=== PATIENT | female | born 1955 | race Caucasian/White ===

== ENCOUNTER → 2016-11-15 | Outpatient (CLI) | payer OTHER ==
[~2016-11-15] MED LIST: ACETAMINOPHEN-H1 TA2 PO; BISACODYL LAXATI5 MG PO; CIPRO500 MG PO; HYDROCODONE BIT1 T11 PO; MIRALAX POWDER17 G1 PO; Orphenadrine C100 MG PO; PREDNISONE20 M1 PO; VIMOVO DR 500-1 EACH PO; ZOFRAN ODT4 MG SL
== END | disposition home or self-care (01) ==
LOC: RAD 12:31
DX: R06.02 Shortness of breath (principal); I51.7 Cardiomegaly; R05 Cough; F17.200 Nicotine dependence, unspecified, uncomplicated

== ENCOUNTER → 2017-05-22 | Outpatient (CLI) | payer OTHER | END | disposition home or self-care (01) | LOC: LAB 17:12 | DX: R30.0 Dysuria (principal) ==

== ENCOUNTER → 2017-08-11 | Outpatient (CLI) | payer OTHER ==
[2017-08-11 16:36] LABS: ALBUMIN 3.7 gm/dl (3.1-4.5); BUN 13 mg/dl (7-24); CHLORIDE 105 mmol/L (98-107); CREATININE 0.71 mg/dL (0.55-1.02); POTASSIUM 4.7 mmol/L (3.5-5.1); SGOT/AST 41 IU/L (3-35); SGPT/ALT 58 U/L (12-78); SODIUM 142 mmol/L (136-145)
[2017-08-11 16:37] LABS: ALKALINE PHOSPHATASE 109 U/L (45-117); TOTAL PROTEIN 7.1 gm/dL (6.4-8.2)
== END | disposition home or self-care (01) ==
LOC: LAB 15:33 → US 17:00
PROVIDERS: Family Medicine
DX: N39.45 Continuous leakage (principal)

== ENCOUNTER → 2020-02-03 | Outpatient (CLI) | payer BC | END | disposition home or self-care (01) | LOC: COVID19 09:51 | PROVIDERS: ATTEND Internal Medicine | DX: Z20.828 Contact with and (suspected) exposure to other viral communicable diseases (principal) ==

== ENCOUNTER → 2022-12-15 | Outpatient (CLI) | payer OTHER | END | disposition home or self-care (01) | LOC: CARD 00:18 | PROVIDERS: ATTEND Physician Assistant Medical | DX: R07.89 Other chest pain (principal); R55 Syncope and collapse ==

== ENCOUNTER → 2022-12-17 | Outpatient (CLI) | payer OTHER | END | disposition home or self-care (01) | LOC: CT 12-08 01:16 | PROVIDERS: ATTEND Physician Assistant Medical | DX: R91.1 Solitary pulmonary nodule (principal); J43.9 Emphysema, unspecified; F17.210 Nicotine dependence, cigarettes, uncomplicated ==